=== PATIENT | male | born 1960 | race Caucasian/White ===

== ENCOUNTER 2025-05-17 20:51 | Inpatient (IN) | payer OTHER ==
[~2025-05-17] VITALS: Ht 167.6 cm; Wt 96.4 kg
[2025-05-17 20:56] VITALS: O2SAT 99
[2025-05-17 21:40] LABS: BASOPHILS % 0.3 % (0.0-2.0); EOSINOPHILS % 2.8 % (0.0-5.0); HEMATOCRIT. 42.0 % (42.0-52.0); HEMOGLOBIN. 14.0 g/dL (14.0-18.0); LYMPHOCYTES % 25.8 % (20.0-50.0); MEAN PLATELET VOLUME 8.9 fl (7.4-10.4); MONOCYTES % 7.9 % (2.0-8.0); NEUTROPHILS % 63.2 % (40.0-76.0); PLATELET 242 x1000/uL (130-400); RED BLOOD CELL COUNT 4.75 mill/uL (4.7-6.1); RED CELL DISTRIBUTION WIDTH 14.4 % (11.6-14.6)
[2025-05-17 21:50] LABS: INR 1.0
[2025-05-17 21:57] LABS: TROPONIN I HIGH SENSITIVITY < 4 ng/L (3.0-53)
[2025-05-17 21:58] LABS: CREATININE 1.0 mg/dL (0.6-1.3); UREA NITROGEN BLOOD 11 mg/dL (9-23)
[2025-05-17 22:00] LABS: ASPARTATE AMINOTRANSFERASE 23 IU/L (<34); BILIRUBIN DIRECT 0.1 mg/dL (<=3.0); BILIRUBIN TOTAL 0.4 mg/dL (0.1-1.0); PROTEIN TOTAL 7.1 g/dL (6.0-8.3)
[2025-05-17 22:00] LABS: CLARITY URINE CLEAR (CLEAR); COLOR URINE YELLOW (YELLOW); GLUCOSE URINE NEGATIVE (NEGATIVE); KETONES URINE NEGATIVE (NEGATIVE); LEUKOCYTE ESTERASE URINE NEGATIVE (NEGATIVE); NITRITE URINE NEGATIVE (NEGATIVE); OCCULT BLOOD URINE NEGATIVE (NEGATIVE); PH URINE 7.5 (4.5-8.0); PROTEIN URINE NEGATIVE (NEGATIVE); SPECIFIC GRAVITY URINE 1.022 (1.005-1.030); UROBILINOGEN URINE 0.2 E.U./dL (0.2-1.0)
[2025-05-17 22:09] LABS: *AMPHETAMINES SCREEN URINE NEGATIVE (NEGATIVE); *BARBITURATES SCREEN URINE NEGATIVE (NEGATIVE); *BENZODIAZEPINES SCREEN URINE NEGATIVE (NEGATIVE); *COCAINE SCREEN URINE NEGATIVE (NEGATIVE); METHADONE URINE SCREEN NEGATIVE (NEGATIVE)
[2025-05-17 22:10] LABS: CANNABINOID URINE SCREEN NEGATIVE (NEGATIVE); ECSTASY MDMA SCREEN URINE NEGATIVE (NEGATIVE); OPIATES URINE SCREEN NEGATIVE (NEGATIVE); PHENCYCLIDINE URINE SCREEN NEGATIVE (NEGATIVE)
[2025-05-17] MEDS: ACYCLOVIR 400 MG TABLET PO ONE (22:49)
[2025-05-17] MEDS: ASPIRIN 81MG TABLET PO ONE (22:52)
[2025-05-17] MEDS: PREDNISONE 20MG TABLET PO ONE (22:58)
[2025-05-17] MEDS ORDERED: MAGNESIUM/ALUMINUM HYDROXIDE/SIMETHICONE 30ML UDC PO PRN (23:15)
[2025-05-17] MEDS ORDERED: DOCUSATE SODIUM 100MG CAPSULE PO PRN (23:15)
[2025-05-17] MEDS ORDERED: GUAIFENESIN 200MG/10ML SUGAR FREE UDC PO PRN (23:15)
[2025-05-17] MEDS ORDERED: ACETAMINOPHEN 325MG TABLET PO PRN ×2 (23:15)
[2025-05-17] MEDS ORDERED: ONDANSETRON HCL 4MG/2ML INJ IV PRN (23:15)
[2025-05-17] MEDS ORDERED: IPRATROPIUM/ALBUTEROL 0.5-3(2.5)MG/3ML NEB HHN PRN (23:24)
[2025-05-17] MEDS ORDERED: IOHEXOL-350 100 ML BOTTLE ONE (23:39)
[2025-05-17] MEDS: CLONIDINE 0.1MG TABLET PO PRN (23:56)
[2025-05-18 00:30] VITALS: BP 165/98; PULSE 78; RESP 18; TEMP 36.2; O2SAT 98
[2025-05-18 01:08] LABS: CLARITY URINE CLEAR (CLEAR); COLOR URINE YELLOW (YELLOW); GLUCOSE URINE NEGATIVE (NEGATIVE); KETONES URINE NEGATIVE (NEGATIVE); LEUKOCYTE ESTERASE URINE NEGATIVE (NEGATIVE); NITRITE URINE NEGATIVE (NEGATIVE); OCCULT BLOOD URINE TRACE (NEGATIVE); PH URINE 7.5 (4.5-8.0); PROTEIN URINE NEGATIVE (NEGATIVE); SPECIFIC GRAVITY URINE 1.029 (1.005-1.030); UROBILINOGEN URINE 1.0 E.U./dL (0.2-1.0)
[2025-05-18] MEDS: SODIUM CHLORIDE 0.45% 1,000 ML IV SCH (01:10)
[2025-05-18] MEDS: POTASSIUM CHLORIDE 20MEQ TABLET SR PO NR (01:10)
[2025-05-18] MEDS: HYDRALAZINE 20MG/ML VIAL IV PRN (01:15)
[2025-05-18 01:59] VITALS: BP 165/98; PULSE 78; RESP 18; TEMP 36.1956
[2025-05-18 02:20] LABS: BACTERIA URINE NONE SEEN; SQUAMOUS EPITHELIAL CELL URINE NONE SEEN /lpf (RARE/1+); WBC URINE NONE SEEN /hpf (0-2)
[2025-05-18 04:00] VITALS: BP 144/90; PULSE 85; RESP 18; TEMP 36.1; O2SAT 98
[2025-05-18 08:00] VITALS: BP 150/87; PULSE 89; RESP 17; TEMP 36.4; O2SAT 95
[2025-05-18 08:37] LABS: BASOPHILS % 0.1 % (0.0-2.0); EOSINOPHILS % 0.0 % (0.0-5.0); HEMATOCRIT. 45.6 % (42.0-52.0); HEMOGLOBIN. 14.9 g/dL (14.0-18.0); LYMPHOCYTES % 10.5 % (20.0-50.0); MEAN PLATELET VOLUME 8.9 fl (7.4-10.4); MONOCYTES % 1.0 % (2.0-8.0); NEUTROPHILS % 88.4 % (40.0-76.0); PLATELET 230 x1000/uL (130-400); RED BLOOD CELL COUNT 5.14 mill/uL (4.7-6.1); RED CELL DISTRIBUTION WIDTH 14.6 % (11.6-14.6)
[2025-05-18 09:04] LABS: TROPONIN I HIGH SENSITIVITY < 4 ng/L (3.0-53)
[2025-05-18 09:08] LABS: ASPARTATE AMINOTRANSFERASE 17 IU/L (<34); BILIRUBIN DIRECT 0.2 mg/dL (<=3.0); BILIRUBIN TOTAL 0.6 mg/dL (0.1-1.0); PROTEIN TOTAL 7.5 g/dL (6.0-8.3)
[2025-05-18] MEDS: THIAMINE HCL 100MG TABLET PO SCH (09:23)
[2025-05-18] MEDS: AMLODIPINE 10MG TABLET PO SCH (09:23)
[2025-05-18] MEDS: FOLIC ACID 1MG TABLET PO SCH (09:23)
[2025-05-18] MEDS: ASPIRIN 81MG EC TABLET PO SCH (09:23)
[2025-05-18] MEDS: CLOPIDOGREL 75MG TABLET PO SCH (09:24)
[2025-05-18 09:27] LABS: CREATININE 0.8 mg/dL (0.6-1.3); TRIGLYCERIDE 38 mg/dL (0-150); UREA NITROGEN BLOOD 11 mg/dL (9-23)
[2025-05-18 09:28] LABS: LDL CHOLESTEROL 133 mg/dL (5-100)
[2025-05-18 09:30] LABS: T4 FREE 1.04 ng/dL (0.89-1.76)
[2025-05-18 12:00] VITALS: BP 162/89; PULSE 111; RESP 18; TEMP 36.6; O2SAT 97
[2025-05-18] MEDS ORDERED: P50 PO (12:23)
[2025-05-18] MEDS ORDERED: ACYC-58 PO (12:23)
[2025-05-18 13:48] VITALS: BP 141/84; PULSE 99; RESP 18; TEMP 97.9
[2025-05-18] MEDS ORDERED: FAMOTIDINE 20MG TABLET PO SCH (21:00)
[2025-05-18] MEDS ORDERED: ATORVASTATIN CALCIUM 40MG TABLET PO SCH (21:00)
== END 2025-05-18 17:50 | disposition home or self-care (01) | DRG 74 ==
LOC: ER 20:51 → EDBEDREQ 23:07 → EDBEDREQTM 23:07 → ENRESERV 23:38 → 6WST 05-18 00:37
PROVIDERS: ADMIT Internal Medicine; ATTEND Internal Medicine
DX: G51.0 Bell's palsy (principal); E78.5 Hyperlipidemia, unspecified; E11.9 Type 2 diabetes mellitus without complications; I16.0 Hypertensive urgency; I10 Essential (primary) hypertension; R29.703 NIHSS score 3; F10.90 Alcohol use, unspecified, uncomplicated; Y90.0 Blood alcohol level of less than 20 mg/100 ml; Z79.899 Other long term (current) drug therapy
CPT/HCPCS: 36415; 70496; 70498; 70551; 71045; 80048; 80061; 80076; 80305; 80320; 81003; 84439; 84443; 84484; 85025; 92610; 93005; 93970; 97110; 97162; 99291; G0378; J0360; J7512; Q9967; G0480